=== PATIENT | female | born 1955 | race Caucasian/White ===

== ENCOUNTER → 2016-11-05 | Outpatient (CLI) | payer OTHER ==
[~2016-11-05] MED LIST: ASCO500T3 PO; ASPI81TA28 PO; B-COCAP2 PO; CALC600T9 PO; LEVO125T72 PO; MAGNESIUM PO; MISCTAB78 PEG; MULTTAB58 PO; NAPR1CAP12 PO; OMEG10007 PO; VITAMIN B 12 PO
--- NOTE | 2016-11-05 16:08 | MAMMOGRAPHY REPORT ---
BILATERAL DIGITAL SCREENING MAMMOGRAM TOMOSYNTHESIS WITH CAD: 11/05/2016 CLINICAL HISTORY: Routine screening examination. TECHNIQUE: Breast tomosynthesis in addition to standard 2D mammography was performed. Current study was also evaluated with a Computer Aided Detection (CAD) system. COMPARISON: Comparison is made to exams dated: 07/06/2015 mammogram, 05/24/2014 mammogram, 01/28/2012 m ammogram, 11/29/2010 mammogram, 10/05/2009 mammogram - [facility], and 01/09/2008. BREAST COMPOSITION: There are scattered areas of fibroglandular density in both breasts. FINDINGS: There are mild vascular calcifications and benign rim calcifications bilaterally. No suspi cious mass, architectural distortion or cluster of microcalcifications is seen. IMPRESSION: ACR BI-RADS CATEGORY 1: NEGATIVE There is no mammographic evidence of malignancy. A 1 year screening mammogram is recommended. The pa tient will receive written notification of the results. Approximately 10% of breast cancers are not detected with mammography. A negative mammographic report should not delay biopsy if a clinically suggestive mass is present. Adrianna Miller M.D. ay/:11/05/2016 15:59:32 [employer]: Karin NAYAK(Qamar)(M), [facility] letter sent: Normal 1/2 BI-RADS Code: ACR BI-RADS Category 1: Negative
== END | disposition home or self-care (01) ==
LOC: C.MAMM 10:43
PROVIDERS: ATTEND Family Medicine
DX: Z12.31 Encounter for screening mammogram for malignant neoplasm of breast (principal)